=== PATIENT | female | born 1955 | race Two or more races ===

== ENCOUNTER 2020-08-11 14:36 | Emergency (ER) | payer OTHER ==
[~2020-08-11] VITALS: Ht 170.2 cm; Wt 94.8 kg
[2020-08-11 16:47] VITALS: BP 157/94
[2020-08-11] MEDS ORDERED: traMADol HCL 50 MG TAB PO ONE (17:15)
== END 2020-08-11 18:52 | disposition home or self-care (01) ==
LOC: ER 14:36
DX: S46.912A Strain of unspecified muscle, fascia and tendon at shoulder and upper arm level, left arm, initial encounter (principal); S83.92XA Sprain of unspecified site of left knee, initial encounter; M79.672 Pain in left foot; E11.9 Type 2 diabetes mellitus without complications; I10 Essential (primary) hypertension; Z90.49 Acquired absence of other specified parts of digestive tract; Z88.0 Allergy status to penicillin; W01.0XXA Fall on same level from slipping, tripping and stumbling without subsequent striking against object, initial encounter; Y93.89 Activity, other specified; Y92.89 Other specified places as the place of occurrence of the external cause; Y99.8 Other external cause status
CPT/HCPCS: 73030; 73562; 73620

== ENCOUNTER 2024-11-09 21:32 | Emergency (ER) | payer OTHER ==
[~2024-11-09] VITALS: Ht 170.2 cm; Wt 88.0 kg
[2024-11-09] MEDS ORDERED: HYDROcodone-ACET 10/325MG TAB PO ONE (22:15)
[2024-11-09 22:17] VITALS: BP 145/60; PULSE 70; RESP 19; TEMP 98.4; O2SAT 97
[2024-11-09] MEDS: ACETAMINOPHEN 500 MG TAB or CAP PO ONE (22:17)
--- NOTE | 2024-11-09 23:22 | DVH ---
CLINICAL INDICATION: Status post fall pain TECHNIQUE: XYXY R KNEE 3V XRAY Comparison: L KNEE 3V XRAY on DOS: 08/11/20 FINDINGS/IMPRESSION: : There is no evidence of acute fracture or dislocation. Soft tissues are unremarkable.
--- NOTE | 2024-11-09 23:26 | DVH ---
CLINICAL INDICATION: Status post fall pain TECHNIQUE: XYXY R ANKLE 3 VIEW Comparison: None FINDINGS/IMPRESSION: : There is no evidence of acute fracture or dislocation. Soft tissues are unremarkable.
--- NOTE | 2024-11-09 23:28 | DVH ---
INDICATION: Status post fall neck pain TECHNIQUE: 4 views of the cervical spine were obtained. COMPARISON: None FINDINGS: No fractures or subluxations are identified. Multilevel degenerative changes of the spine Alignment appears unremarkable. Prevertebral soft tissues are within normal limits. IMPRESSION: No acute fracture or subluxation
--- NOTE | 2024-11-09 23:28 | DVH ---
CLINICAL INDICATION: Status post fall pain TECHNIQUE: XYXY R SHOULDER 2+ VIEW XRAY Comparison: L SHOULDER COMPLETE XRAY on DOS: 08/11/20 FINDINGS/IMPRESSION: : There is no evidence of acute fracture or dislocation. Soft tissues are unremarkable.
--- NOTE | 2024-11-09 23:35 | ED.PDOC ---
Janie. trauma (HPI) HPI Comments Pt presents to ED s/p trip and fall. Pt landed on her right side causing right lower extremity and right shoulder pain, as well as neck pain. Pt denies hitting her head or LOC Chief Complaint: Fall Injury Time Seen by MD: 21:41 Reviewed notes: Nurses Notes, Medications, Allergies Allergies: Coded Allergies: Penicillins (Verified Allergy, Severe, 08/11/20) Information Source: Patient Mode of Arrival: Wheelchair Past Medical History PAST MEDICAL HISTORY: DM, HTN Surgical History: Appendectomy, Family History Family History: Reviewed,noncontributory to illness Social History Smoker: Non-Smoker Alcohol: Denies ETOH Use Drugs: Denies Drug Use Physical Exam General Appearance: No Apparent Distress, Normal HEENT: Normal ENT Inspection, Pharynx Normal, TMs Normal Neck: Limited Range of Motion, Tender Lateral Respiratory: Chest Non-Tender, Lungs Clear, No Respiratory Distress, Normal Breath Sounds Cardiovascular: No Edema, No JVD, No Murmur, No Gallop, Normal Peripheral Pulses, Regular Rate/Rhythm Breast Exam: Deferred Gastrointestinal: No Organomegaly, Non Tender, No Pulsatile Mass, Normal Bowel Sounds, Soft Genitalia: Deferred Pelvic: Deferred Rectal: Deferred Extremities: No calf tenderness, Normal capillary refill, Normal inspection, Normal range of motion, Non-tender, No pedal edema Musculoskeletal : Location: Right (Mild tenderness over anterior knee and anterior ankle no noted edema ecchymosis lesions lacerations or abrasions strength sensory motion intact positive pedal pulses. Right shoulder tenderness anterior passive range of motion with moderate discomfort strength sensory motion intact positive radial pulse. No noted visible gross external trauma) Extremity Location: Ankle Apperance: Normal Neurologic: Alert, No Motor Deficits, Normal Affect, Normal Mood, No Sensory Deficits Cerebellar Function: Normal Reflexes: Normal Skin: Dry, Normal Color, Warm Lymphatic: No Adenopathy Was a procedure done? Was a procedure done?: No Differential Diagnosis Multiple Trauma: Fractures, Spine Injury Neck Injury: Cervical Muscle Spasm, Cervical Fracture X-Ray, Labs, Meds, VS Vital Signs Date Time Temp Pulse Resp B/P (MAP) Pulse Ox O2 Delivery O2 Flow Rate FiO2 11/09/24 22:17 98.4 70 19 145/60 (88) 97 98.4 11/09/24 22:17 70 19 97 Room Air 11/09/24 21:35 97.9 77 18 144/72 96 97.9 Current Medications Medications (Trade) Dose Ordered Sig/Lenin Route Start Time Stop Time Status Last Admin Acetaminophen (Tylenol Tablet Or Capsule) 1,000 mg ONCE ONCE PO 11/09/24 22:15 11/09/24 22:16 DC 11/09/24 22:17 X-Ray, Labs, Meds, VS Comment Cervical spine x-ray shows no acute fractures subluxations or osseous lesions. Right shoulder x-ray shows no acute fractures or dislocations or osseous lesions. Right knee and ankle show no acute fractures dislocations or osseous lesions Patient given Toradol 60 mg IM and Decadron 10 mg IM patient refused the [place]. Patient advised to follow up with her PCP in 2-3 days as necessary consider further imaging if symptoms persist advised to rest alternate between ice and heat [id number] Tylenol or Motrin as needed for the pain per labeled dosing instructions ER return precautions given patient indicates understanding agrees with discharge plan of care. Time of 1ST Reevaluation: 21:41 Reevaluation 1ST: Unchanged Time of 2ND Reevaluation: 23:34 Reevaluation 2ND: Improved Patient Education/Counseling: Diagnosis, Treatment, Need For Follow Up Family Education/Counseling: No Family Present Departure 1 Departure Time of Disposition: 23:34 Impression: Primary Impression: Fall Qualified Codes: W19.XXXA - Unspecified fall, initial encounter Additional Impressions: Knee sprain Qualified Codes: S83.91XA - Sprain of unspecified site of right knee, initial encounter Shoulder strain Qualified Codes: S46.911A - Strain of unspecified muscle, fascia and tendon at shoulder and upper arm level, right arm, initial encounter Cervical strain, acute Qualified Codes: S16.1XXA - Strain of muscle, fascia and tendon at neck level, initial encounter Disposition: HOME / SELF CARE / HOMELESS Condition: Stable Discharged With: Self Critical Care Note Critical Care Time?: No Stability Stability form required: MARGIE Colby Nov 09, 2024 23:35
== END 2024-11-10 01:40 | disposition home or self-care (01) ==
LOC: ER 21:32
DX: S83.91XA Sprain of unspecified site of right knee, initial encounter (principal); S46.911A Strain of unspecified muscle, fascia and tendon at shoulder and upper arm level, right arm, initial encounter; S16.1XXA Strain of muscle, fascia and tendon at neck level, initial encounter; Z90.49 Acquired absence of other specified parts of digestive tract; Z88.0 Allergy status to penicillin; I10 Essential (primary) hypertension; E11.9 Type 2 diabetes mellitus without complications; W19.XXXA Unspecified fall, initial encounter; Y93.89 Activity, other specified; Y92.89 Other specified places as the place of occurrence of the external cause; Y99.8 Other external cause status
CPT/HCPCS: 72040; 73030; 73562; 73610